=== PATIENT | male | born 1980 | race Asian ===

== ENCOUNTER 2016-05-18 15:28 | Outpatient (CLI) | payer OTHER | END 2016-05-18 15:31 | disposition short-term general hospital (02) | LOC: AMB 15:28 | DX: M54.2 Cervicalgia (principal); V53.6XXA Passenger in pick-up truck or van injured in collision with car, pick-up truck or van in traffic accident, initial encounter; Y92.414 Local residential or business street as the place of occurrence of the external cause | CPT/HCPCS: A0425; A0429 ==

== ENCOUNTER 2016-05-18 15:40 | Emergency (ER) | payer OTHER ==
[~2016-05-18] VITALS: Ht 177.8 cm; Wt 70.3 kg
== END 2016-05-18 16:56 | disposition home or self-care (01) ==
LOC: ED 15:40
DX: S16.1XXA Strain of muscle, fascia and tendon at neck level, initial encounter (principal); V43.62XA Car passenger injured in collision with other type car in traffic accident, initial encounter
CPT/HCPCS: 99283